=== PATIENT | female | born 1940 | race Caucasian/White ===

== ENCOUNTER 2019-03-24 15:45 | Observation (INO) | payer MEDICARE, OTHER ==
--- NOTE | 2019-03-24 16:07 | EDM.PDOC ---
ED HPI GENERAL MEDICAL PROBLEM - General Chief Complaint: General Stated Complaint: SPOKE TO NURSE Time Seen by Provider: 03/24/19 15:49 - History of Present Illness INITIAL COMMENTS - FREE TEXT/NARRATIVE: HISTORY AND PHYSICAL: History of present illness: Patient 79-year-old female with extensive past medical history including bone cancer and frequent blood transfusions related to her underlying disease and current chemotherapy she is followed exclusively at [facility] who presents today with a concern of vomiting generalized weakness and possible dehydration this is been a chronic intermittent problem over the last several weeks related to constipation per patient is been no reported fever chills chest pain or shortness of breath she was at a today for her sister prior to coming here Review of systems: As per history of present illness and below otherwise all systems reviewed and negative. Past medical history: As per history of present illness and as reviewed below otherwise noncontributory. Surgical history: As per history of present illness and as reviewed below otherwise noncontributory. Social history: No reported history of drug or alcohol abuse. Family history: As per history of present illness and as reviewed below otherwise noncontributory. Physical exam: HEENT: Atraumatic, normocephalic, pupils reactive,conjunctival pallor noted no scleral icterus, mucous membranes dry, throat clear, neck supple, nontender, trachea midline. Lungs: Clear to auscultation, breath sounds equal bilaterally, chest nontender. Heart: S1S2, regular, negative for clicks, rubs, or JVD. Abdomen: Soft, nondistended, nontender. Negative for masses or hepatosplenomegaly. Negative for costovertebral tenderness. Pelvis: Stable nontender. Genitourinary: Deferred. Rectal: Deferred. Extremities: Atraumatic, negative for cords or calf pain. Neurovascular unremarkable. Neuro: Awake, alert, oriented. Patient follows command moves all extremities is limited grossly nonfocal exam Diagnostics: CBC CMP and lipase PT/INR chest x-ray EKG CT abdomen and pelvis UA Therapeutics: Saline 1 L bolus Zofran 4 mg IV Impression: #1 generalized weakness #2 vomiting with dehydration #3 history of malignancy with anemia Definitive disposition and diagnosis as appropriate pending reevaluation and review of above. - Related Data Allergies Allergy/AdvReac Type Severity Reaction Status Date / Time atorvastatin [From Lipitor] Allergy Numbness Verified 03/24/19 16:02 Home Meds: Home Meds Albuterol [Ventolin HFA] 2 puff IN Q6H PRN 03/24/19 [History] Azithromycin [Zithromax] 250 mg PO DAILY 03/24/19 [History] DULoxetine [Cymbalta] 30 mg PO DAILY 03/24/19 [History] Ethambutol 800 mg PO DAILY 03/24/19 [History] Fluticasone/Salmeterol [Advair 250-50 Diskus] 1 puff IH BID 03/24/19 [History] Rifabutin 300 mg PO DAILY 03/24/19 [History] Rivaroxaban [Xarelto] 20 mg PO DAILY 03/24/19 [History] Triamcinolone Acetonide [Triamcinolone Acetonide 0.1% Crm] 1 applic TOP BID [History] Triamterene/Hydrochlorothiazid [Triamterene-HCTZ 37.5-25 MG] 1 each PO DAILY [History] hydrOXYzine pamoate [Hydroxyzine Pamoate] 25 mg PO BEDTIME PRN 03/24/19 [History ] traMADol [Ultram] 50 mg PO BEDTIME 03/24/19 [History] traZODone HCl [Trazodone HCl] 25 mg PO BEDTIME 03/24/19 [History] ED ROS GENERAL - Review of Systems Review Of Systems: ROS reveals no pertinent complaints other than HPI. ED EXAM, GENERAL - Physical Exam Exam: See Below (See dictation) Course - Vital Signs Last Recorded V/S: Last Vital Signs Temp 36.1 C 03/24/19 16:03 Pulse 68 03/24/19 16:03 Resp 16 03/24/19 16:03 BP 114/48 L 03/24/19 16:03 Pulse Ox 88 L 03/24/19 16:03 - Orders/Labs/Meds Orders: Active Orders 24 hr Category Date Time Status Abdomen Pelvis wo Cont [CT] Stat Exams 03/24/19 16:15 Ordered Chest 1V Frontal [CR] Stat Exams 03/24/19 16:15 Ordered UA RFX SID AND CULT IF INDIC [URIN] Stat Lab 03/24/19 16:15 Ordered Sodium Chloride 0.9% [Saline Flush] Med 03/24/19 16:17 Active 10 ml FLUSH ASDIRECTED PRN Sodium Chloride 0.9% [Saline Flush] Med 03/24/19 16:17 Active 2.5 ml FLUSH ASDIRECTED PRN Saline Lock Insert [OM.PC] Stat Oth 03/24/19 16:17 Ordered Medication Orders Sodium Chloride (Saline Flush) 10 ml FLUSH ASDIRECTED PRN PRN Reason: Keep Vein Open Last Admin: 03/24/19 16:35 Dose: 10 ml Sodium Chloride (Saline Flush) 2.5 ml FLUSH ASDIRECTED PRN PRN Reason: Keep Vein Open Last Admin: 03/24/19 16:35 Dose: 2.5 ml Labs: Laboratory Tests 03/24/19 03/24/19 03/24/19 Range/Units 16:38 16:38 16:38 WBC 3.23 L (4.0-11.0) K/uL RBC 2.34 L (4.30-5.90) M/uL Hgb 7.7 L (12.0-16.0) g/dL Hct 23.1 L (36.0-46.0) % MCV 98.7 H (80.0-98.0) fL MCH 32.9 H (27.0-32.0) pg MCHC 33.3 (31.0-37.0) g/dL RDW Std Deviation 74.3 H (28.0-62.0) fl RDW Coeff of Aliyah 22 H (11.0-15.0) % Plt Count 253 (150-400) K/uL MPV 12.00 (7.40-12.00) fL Neut % (Auto) 72.5 (48.0-80.0) % Lymph % (Auto) 7.7 L (16.0-40.0) % [place] % (Auto) 1.9 (0.0-15.0) % Eos % (Auto) 17.0 H (0.0-7.0) % Baso % (Auto) 0.9 (0.0-1.5) % Neut # (Auto) 2.3 (1.4-5.7) K/uL Lymph # (Auto) 0.3 L (0.6-2.4) K/uL [place] # (Auto) 0.1 (0.0-0.8) K/uL Eos # (Auto) 0.6 (0.0-0.7) K/uL Baso # (Auto) 0.0 (0.0-0.1) K/uL Nucleated RBC % 0.0 /100WBC Nucleated RBCs # 0 K/uL INR 1.18 Sodium 137 (136-145) mmol/L Potassium 3.3 L (3.5-5.1) mmol/L Chloride 101 (98-107) mmol/L Carbon Dioxide 27.1 (21.0-32.0) mmol/L BUN 19 H (7.0-18.0) mg/dL Creatinine 0.9 (0.6-1.0) mg/dL Est Cr Clr Drug Dosing 36.86 mL/min Estimated GFR (MDRD) > 60.0 ml/min Glucose 110 H (74-106) mg/dL Calcium 9.1 (8.5-10.1) mg/dL Total Bilirubin 1.2 H (0.2-1.0) mg/dL AST 27 (15-37) IU/L ALT 17 (14-63) IU/L Alkaline Phosphatase 84 (46-116) U/L Total Protein 6.0 L (6.4-8.2) g/dL Albumin 3.2 L (3.4-5.0) g/dL Globulin 2.8 (2.6-4.0) g/dL Albumin/Globulin Ratio 1.1 (0.9-1.6) Lipase 66 L (73-393) U/L Blood Type Antibody Screen 03/24/19 Range/Units 16:38 WBC (4.0-11.0) K/uL RBC (4.30-5.90) M/uL Hgb (12.0-16.0) g/dL Hct (36.0-46.0) % MCV (80.0-98.0) fL MCH (27.0-32.0) pg MCHC (31.0-37.0) g/dL RDW Std Deviation (28.0-62.0) fl RDW Coeff of Aliyah (11.0-15.0) % Plt Count (150-400) K/uL MPV (7.40-12.00) fL Neut % (Auto) (48.0-80.0) % Lymph % (Auto) (16.0-40.0) % [place] % (Auto) (0.0-15.0) % Eos % (Auto) (0.0-7.0) % Baso % (Auto) (0.0-1.5) % Neut # (Auto) (1.4-5.7) K/uL Lymph # (Auto) (0.6-2.4) K/uL [place] # (Auto) (0.0-0.8) K/uL Eos # (Auto) (0.0-0.7) K/uL Baso # (Auto) (0.0-0.1) K/uL Nucleated RBC % /100WBC Nucleated RBCs # K/uL INR Sodium (136-145) mmol/L Potassium (3.5-5.1) mmol/L Chloride (98-107) mmol/L Carbon Dioxide (21.0-32.0) mmol/L BUN (7.0-18.0) mg/dL Creatinine (0.6-1.0) mg/dL Est Cr Clr Drug Dosing mL/min Estimated GFR (MDRD) ml/min Glucose (74-106) mg/dL Calcium (8.5-10.1) mg/dL Total Bilirubin (0.2-1.0) mg/dL AST (15-37) IU/L ALT (14-63) IU/L Alkaline Phosphatase (46-116) U/L Total Protein (6.4-8.2) g/dL Albumin (3.4-5.0) g/dL Globulin (2.6-4.0) g/dL Albumin/Globulin Ratio (0.9-1.6) Lipase (73-393) U/L Blood Type O POSITIVE Antibody Screen NEGATIVE Meds: Medications Generic Name Dose Route Start Last Admin Trade Name Freq PRN Reason Stop Dose Admin Sodium Chloride 10 ml 03/24/19 16:17 03/24/19 16:35 Saline Flush FLUSH 10 ml ASDIRECTED PRN Administration Keep Vein Open Sodium Chloride 2.5 ml 03/24/19 16:17 03/24/19 16:35 Saline Flush FLUSH 2.5 ml ASDIRECTED PRN Administration Keep Vein Open Discontinued Medications Generic Name Dose Route Start Last Admin Trade Name Freq PRN Reason Stop Dose Admin Sodium Chloride 1,000 mls @ 999 mls/hr 03/24/19 16:16 03/24/19 16:34 Normal Saline IV 03/24/19 17:16 999 mls/hr .BOLUS ONE Administration Ondansetron HCl 4 mg 03/24/19 16:17 03/24/19 16:35 Zofran IVPUSH 03/24/19 16:18 4 mg ONETIME ONE Administration Departure - Departure Time of Disposition: 17:36 Disposition: Refer to Observation Condition: Fair Clinical Impression: Generalized weakness, Anemia, History of hematologic malignancy, Dehydration - Discharge Information Forms: ED Department Discharge - My Orders Last 24 Hours: My Active Orders 03/24/19 16:15 Abdomen Pelvis wo Cont [CT] Stat Chest 1V Frontal [CR] Stat UA RFX SID AND CULT IF INDIC [URIN] Stat 03/24/19 16:17 Sodium Chloride 0.9% [Saline Flush] 10 ml FLUSH ASDIRECTED PRN Sodium Chloride 0.9% [Saline Flush] 2.5 ml FLUSH ASDIRECTED PRN Saline Lock Insert [OM.PC] Stat - Assessment/Plan Last 24 Hours: My Active Orders 03/24/19 16:15 Abdomen Pelvis wo Cont [CT] Stat Chest 1V Frontal [CR] Stat UA RFX SID AND CULT IF INDIC [URIN] Stat 03/24/19 16:17 Sodium Chloride 0.9% [Saline Flush] 10 ml FLUSH ASDIRECTED PRN Sodium Chloride 0.9% [Saline Flush] 2.5 ml FLUSH ASDIRECTED PRN Saline Lock Insert [OM.PC] Stat
[2019-03-24] MEDS ORDERED: Sodium Chloride 0.9% 1,000 ML IV ONE ×3 (16:16→18:46)
[2019-03-24] MEDS ORDERED: Ondansetron 4 MG/2 ML SDV IVPUSH ONE (16:17)
[2019-03-24] MEDS ORDERED: Sodium Chloride 0.9% 10 ML Syringe FLUSH PRN (16:17)
[2019-03-24] MEDS ORDERED: Sodium Chloride 0.9% 2.5 ML Syringe FLUSH PRN (16:17)
[2019-03-24 17:13] LABS: CHLORIDE,CL 101 mmol/L (98-107); SODIUM,NA 137 mmol/L (136-145)
[2019-03-24] MEDS ORDERED: Ondansetron 4 MG Tab.DIS PO PRN (17:53)
[2019-03-24] MEDS ORDERED: Ondansetron 4 MG/2 ML SDV IVPUSH PRN (17:53)
[2019-03-24] MEDS ORDERED: Acetaminophen 325 MG Tab PO PRN (17:53)
[2019-03-24] MEDS ORDERED: Bisacodyl 5 MG Tab PO ONE (17:55)
[2019-03-24] MEDS ORDERED: Albuterol 8 GM Inhaler INH PRN (17:56)
[2019-03-24] MEDS ORDERED: hydrOXYzine Pamoate 25 MG Cap PO PRN (17:56)
[2019-03-24] MEDS ORDERED: Potassium Chloride 20 MEQ Tab.ER PO ONE (18:00)
--- NOTE | 2019-03-24 18:58 | PCM.HP.2 ---
<Salvador Sawyer M - Last Filed: 03/24/19 19:05> H&P History of Present Illness - General Date of Service: 03/24/19 Admit Problem/Dx: Admission Diagnosis/Problem Admission Diagnosis/Problem Weakness - History of Present Illness Initial Comments - Free Text/Narative: 79-year-old female who presents to [facility] ER with complaints of weakness, dehydration and constipation. Patient reports that she has star dealing with constipation for the past several weeks now. Her last bowel movement was this morning but it was very small. She has a PMH of myelodysplastic syndrome and is currently on chemotherapy. She followed up with the [facility] as well as Dr. Ortega at [facility] in [place]. She reports that she has chronic anemia and gets regular blood transfusions in [place] approximately every other week. Patient uses home oxygen at night. Patient reports that she felt nauseated and started vomiting today and along with her constipation prompted her to come to the ER for further evaluation. In the ER, patient was found to have a hemoglobin level of 7.7. Patient admitted for further evaluation and treatment. Patient reports feeling cold, weak, nauseated and very constipated. She denies any fevers, sore throat, cough, shortness of breath, chest pain, blood in urine or blood in stool. Abdominal Pain Score (Numeric/FACES): 4 - Related Data Allergies/Adverse Reactions: Allergies Allergy/AdvReac Type Severity Reaction Status Date / Time atorvastatin [From Lipitor] Allergy Numbness Verified 03/24/19 22:59 Home Medications: Home Meds Albuterol [Ventolin HFA] 2 puff IN Q6H PRN 03/24/19 [History] Azithromycin [Zithromax] 250 mg PO DAILY 03/24/19 [History] DULoxetine [Cymbalta] 30 mg PO DAILY 03/24/19 [History] Ethambutol 800 mg PO DAILY 03/24/19 [History] Fluticasone/Salmeterol [Advair 250-50 Diskus] 1 puff IH BID 03/24/19 [History] Rifabutin 300 mg PO DAILY 03/24/19 [History] Rivaroxaban [Xarelto] 20 mg PO DAILY 03/24/19 [History] Triamcinolone Acetonide [Triamcinolone Acetonide 0.1% Crm] 1 applic TOP BID [History] Triamterene/Hydrochlorothiazid [Triamterene-HCTZ 37.5-25 MG] 1 each PO DAILY [History] hydrOXYzine pamoate [Hydroxyzine Pamoate] 25 mg PO BEDTIME PRN 03/24/19 [History ] traMADol [Ultram] 50 mg PO BEDTIME 03/24/19 [History] traZODone HCl [Trazodone HCl] 25 mg PO BEDTIME 03/24/19 [History] Past Medical History Cardiovascular History: Reports: Blood Clots/VTE/DVT, Pulmonary Hypertension Respiratory History: Reports: PE Gastrointestinal History: Reports: Other (See Below) Other Gastrointestinal History: Menetres disease Genitourinary History: Reports: None [employer] History: Reports: Musculoskeletal History: Reports: Fracture, Other (See Below) Other Musculoskeletal History: Skull fracture Oncologic (Cancer) History: Reports: Bone - Infectious Disease History Infectious Disease History: Reports: Chicken Pox, Measles, Mumps - Past Surgical History Respiratory Surgical History: Reports: Lung Biopsies GI Surgical History: Reports: Other (See Below) Female Surgical History: Reports: Hysterectomy Other Oncologic Surgeries/Procedures: MDS Social & Family History - Family History Family Medical History: Noncontributory - Tobacco Use Smoking Status *Q: Never Smoker Second Hand Smoke Exposure: No - Caffeine Use Caffeine Use: Reports: Coffee - Recreational Drug Use Recreational Drug Use: No H&P Review of Systems - Review of Systems: Review Of Systems: ROS reveals no pertinent complaints other than HPI. Exam - Exam Exam: See Below - Vital Signs Vital Signs: Last Vital Signs Temp 96.9 F 03/24/19 16:03 Pulse 68 03/24/19 16:03 Resp 16 03/24/19 16:03 BP 114/48 L 03/24/19 16:03 Pulse Ox 88 L 03/24/19 16:03 Weight: 47.627 kg - Exam General: Alert, Oriented, Cooperative, Mild Distress, Other (pale appearing) HEENT: Conjunctiva Clear, EOMI, Hearing Intact, Pupils Equal Neck: Supple, Trachea Midline Lungs: Clear to Auscultation, Normal Respiratory Effort Cardiovascular: Regular Rate, Regular Rhythm GI/Abdominal Exam: Normal Bowel Sounds, Soft, Non-Tender, No Distention Extremities: Normal Inspection, No Pedal Edema Peripheral Pulses: 1+: Posterior Tibial (L), Posterior Tibial (R) Skin: Warm, Dry, Intact Neurological: Cranial Nerves Intact, Normal Speech, Normal Tone, Sensation Intact Neuro Extensive - Mental Status: Alert, Oriented x3 Psychiatric: Alert, Normal Affect, Normal Mood - Patient Data Lab Results Last 24 hrs: Laboratory Results - last 24 hr 03/24/19 03/24/19 03/24/19 Range/Units 16:38 16:38 16:38 WBC 3.23 L (4.0-11.0) K/uL RBC 2.34 L (4.30-5.90) M/uL Hgb 7.7 L (12.0-16.0) g/dL Hct 23.1 L (36.0-46.0) % MCV 98.7 H (80.0-98.0) fL MCH 32.9 H (27.0-32.0) pg MCHC 33.3 (31.0-37.0) g/dL RDW Std Deviation 74.3 H (28.0-62.0) fl RDW Coeff of Aliyah 22 H (11.0-15.0) % Plt Count 253 (150-400) K/uL MPV 12.00 (7.40-12.00) fL Neut % (Auto) 72.5 (48.0-80.0) % Lymph % (Auto) 7.7 L (16.0-40.0) % Mingo % (Auto) 1.9 (0.0-15.0) % Eos % (Auto) 17.0 H (0.0-7.0) % Baso % (Auto) 0.9 (0.0-1.5) % Neut # (Auto) 2.3 (1.4-5.7) K/uL Lymph # (Auto) 0.3 L (0.6-2.4) K/uL Mingo # (Auto) 0.1 (0.0-0.8) K/uL Eos # (Auto) 0.6 (0.0-0.7) K/uL Baso # (Auto) 0.0 (0.0-0.1) K/uL Nucleated RBC % 0.0 /100WBC Nucleated RBCs # 0 K/uL INR 1.18 Sodium 137 (136-145) mmol/L Potassium 3.3 L (3.5-5.1) mmol/L Chloride 101 (98-107) mmol/L Carbon Dioxide 27.1 (21.0-32.0) mmol/L BUN 19 H (7.0-18.0) mg/dL Creatinine 0.9 (0.6-1.0) mg/dL Est Cr Clr Drug Dosing 36.86 mL/min Estimated GFR (MDRD) > 60.0 ml/min Glucose 110 H (74-106) mg/dL Calcium 9.1 (8.5-10.1) mg/dL Total Bilirubin 1.2 H (0.2-1.0) mg/dL AST 27 (15-37) IU/L ALT 17 (14-63) IU/L Alkaline Phosphatase 84 (46-116) U/L Total Protein 6.0 L (6.4-8.2) g/dL Albumin 3.2 L (3.4-5.0) g/dL Globulin 2.8 (2.6-4.0) g/dL Albumin/Globulin Ratio 1.1 (0.9-1.6) Lipase 66 L (73-393) U/L Blood Type Antibody Screen Crossmatch 03/24/19 Range/Units 16:38 WBC (4.0-11.0) K/uL RBC (4.30-5.90) M/uL Hgb (12.0-16.0) g/dL Hct (36.0-46.0) % MCV (80.0-98.0) fL MCH (27.0-32.0) pg MCHC (31.0-37.0) g/dL RDW Std Deviation (28.0-62.0) fl RDW Coeff of Aliyah (11.0-15.0) % Plt Count (150-400) K/uL MPV (7.40-12.00) fL Neut % (Auto) (48.0-80.0) % Lymph % (Auto) (16.0-40.0) % [place]ingo % (Auto) (0.0-15.0) % Eos % (Auto) (0.0-7.0) % Baso % (Auto) (0.0-1.5) % Neut # (Auto) (1.4-5.7) K/uL Lymph # (Auto) (0.6-2.4) K/uL [place]ingo # (Auto) (0.0-0.8) K/uL Eos # (Auto) (0.0-0.7) K/uL Baso # (Auto) (0.0-0.1) K/uL Nucleated RBC % /100WBC Nucleated RBCs # K/uL INR Sodium (136-145) mmol/L Potassium (3.5-5.1) mmol/L Chloride (98-107) mmol/L Carbon Dioxide (21.0-32.0) mmol/L BUN (7.0-18.0) mg/dL Creatinine (0.6-1.0) mg/dL Est Cr Clr Drug Dosing mL/min Estimated GFR (MDRD) ml/min Glucose (74-106) mg/dL Calcium (8.5-10.1) mg/dL Total Bilirubin (0.2-1.0) mg/dL AST (15-37) IU/L ALT (14-63) IU/L Alkaline Phosphatase (46-116) U/L Total Protein (6.4-8.2) g/dL Albumin (3.4-5.0) g/dL Globulin (2.6-4.0) g/dL Albumin/Globulin Ratio (0.9-1.6) Lipase (73-393) U/L Blood Type O POSITIVE Antibody Screen NEGATIVE Crossmatch See Detail Result Diagrams: 03/24/19 16:38 03/24/19 16:38 Problem List Initiated/Reviewed/Updated: Yes Orders Last 24hrs: Active Orders 24 hr Category Date Time Status Patient Status [ADT] Stat ADT 03/24/19 17:38 Active Antiembolic Devices [RC] PER UNIT ROUTINE Care 03/24/19 17:54 Active Communication Order [RC] ROUTINE Care 03/24/19 18:15 Active Oxygen Therapy [RC] PRN Care 03/24/19 17:53 Active Up ad Yoly [RC] ASDIRECTED Care 03/24/19 17:53 Active VTE/DVT Education [RC] PER UNIT ROUTINE Care 03/24/19 17:53 Active Verify Patient Consent Obtain [RC] ASDIRECTED Care 03/24/19 18:09 Active Vital Signs [RC] Q4H Care 03/24/19 17:53 Active Regular Diet [DIET] Diet 03/24/19 Dinner Active Abdomen Pelvis wo Cont [CT] Stat Exams 03/24/19 16:15 Taken Chest 1V Frontal [CR] Stat Exams 03/24/19 16:15 Taken CBC WITH AUTO DIFF [HEME] AM Lab 03/25/19 05:11 Ordered CBC WITH AUTO DIFF [HEME] AM Lab 03/26/19 05:11 Ordered COMPREHENSIVE METABOLIC PN,CMP [CHEM] AM Lab 03/25/19 05:11 Ordered COMPREHENSIVE METABOLIC PN,CMP [CHEM] AM Lab 03/26/19 05:11 Ordered RED BLOOD CELLS LP [BBK] Routine Lab 03/24/19 16:38 Results TYPE AND SCREEN [BBK] Stat Lab 03/24/19 16:38 Results UA RFX SID AND CULT IF INDIC [URIN] Stat Lab 03/24/19 16:15 Ordered Acetaminophen [Tylenol] Med 03/24/19 17:53 Active 650 mg PO Q4H PRN Albuterol [Ventolin HFA] Med 03/24/19 17:56 Active 0 gm INH Q6H PRN DULoxetine [Cymbalta] Med 03/25/19 09:00 Active 30 mg PO DAILY Fluticasone/Salmeterol [Advair Diskus 250-50] Med 03/24/19 21:00 Active 1 puff INH BID Ondansetron [Zofran ODT] Med 03/24/19 17:53 Active 4 mg PO Q4H PRN Ondansetron [Zofran] Med 03/24/19 17:53 Active 4 mg IVPUSH Q4H PRN Polyethylene Glycol 3350 [MiraLAX] Med 03/24/19 18:00 Active 17 gm PO DAILY Rivaroxaban [Xarelto] Med 03/25/19 09:00 Active 20 mg PO DAILY Sodium Chloride 0.9% [Normal Saline] 1,000 ml Med 03/24/19 18:46 Active IV CONTINUOUS Sodium Chloride 0.9% [Saline Flush] Med 03/24/19 16:17 Active 10 ml FLUSH ASDIRECTED PRN Sodium Chloride 0.9% [Saline Flush] Med 03/24/19 16:17 Active 2.5 ml FLUSH ASDIRECTED PRN Triamterene/Hydrochlorothiazid Med 03/25/19 09:00 Active 1 each PO DAILY hydrOXYzine pamoate [Vistaril] Med 03/24/19 17:56 Active 25 mg PO BEDTIME PRN traMADol [Ultram] Med 03/24/19 21:00 Active 50 mg PO BEDTIME traZODone Med 03/24/19 21:00 Active 25 mg PO BEDTIME Saline Lock Insert [OM.PC] Stat Oth 03/24/19 16:17 Ordered Sequential Compression Device [OM.PC] Per Unit Routine Oth 03/24/19 17:54 Ordered Transfuse Red Blood Cells [COMM] Routine Oth 03/24/19 18:08 Ordered Resuscitation Status Routine Resus Stat 03/24/19 17:53 Ordered Medication Orders Acetaminophen (Tylenol) 650 mg PO Q4H PRN PRN Reason: Pain (Mild 1-3)/fever Albuterol (Ventolin Hfa) 0 gm INH Q6H PRN PRN Reason: Shortness of Breath Duloxetine HCl (Cymbalta) 30 mg PO DAILY [facility] Hydroxyzine Pamoate (Vistaril) 25 mg PO BEDTIME PRN PRN Reason: Itching Sodium Chloride (Normal Saline) 1,000 mls @ 75 mls/hr IV CONTINUOUS ONE Stop: 03/25/19 07:20 Non-Formulary Medication (Rivaroxaban [Xarelto]) 20 mg PO DAILY [facility] Non-Formulary Medication (Triamterene/Hydrochlorothiazid) 1 each PO DAILY [facility] Ondansetron HCl (Zofran Odt) 4 mg PO Q4H PRN PRN Reason: nausea, able to take PO Ondansetron HCl (Zofran) 4 mg IVPUSH Q4H PRN PRN Reason: Nausea Polyethylene Glycol (Miralax) 17 gm PO DAILY [facility] Fluticasone/Salmeterol (Advair Diskus 250-50) 1 puff INH BID KARON Sodium Chloride (Saline Flush) 10 ml FLUSH ASDIRECTED PRN PRN Reason: Keep Vein Open Last Admin: 03/24/19 16:35 Dose: 10 ml Sodium Chloride (Saline Flush) 2.5 ml FLUSH ASDIRECTED PRN PRN Reason: Keep Vein Open Last Admin: 03/24/19 16:35 Dose: 2.5 ml Tramadol HCl (Ultram) 50 mg PO BEDTIME KARON Trazodone HCl (Trazodone) 25 mg PO BEDTIME KARON Assessment/Plan Comment:: Assessment: 1. Acute on chronic anemia. 2. Constipation. 3. Dehydration. 4. Ambulatory dysfunction. 5. History of myelodysplastic syndrome on chemotherapy. 6. Past medical history of pulmonary hypertension and multiple PE. Plan: 1. For acute anemia, ordered 2 units of leukocyte depleted blood, type and screen. Patient reports a history of chronic anemia requiring blood transfusions in [place] every other week. Will check post-transfusion hemoglobin. 2. For constipation, patient started miralax and dulcolax. CT pending. 3. For dehydration, started on IV maintenance fluids of 75 cc/hr. 4. For ambulatory dysfunction, will order PT/OT. 5. For past medical history, will continue with home medications. <Dillon Francisco - Last Filed: 03/25/19 07:03> H&P History of Present Illness - General Admit Problem/Dx: Admission Diagnosis/Problem Admission Diagnosis/Problem Weakness I have examined the patient independently of medical videographer, Dr. Silverio MD. I have discussed the case with him. I have reviewed and agree with the examination and plan as outlined by him. Please see orders. Exam - Vital Signs Vital Signs: Last Vital Signs Temp 36.2 C 03/25/19 04:00 Pulse 106 H 03/25/19 04:00 Resp 16 03/25/19 04:00 BP 92/51 L 03/25/19 04:00 Pulse Ox 97 03/25/19 04:00 - Patient Data Lab Results Last 24 hrs: Laboratory Results - last 24 hr 03/24/19 03/24/19 03/24/19 Range/Units 16:38 16:38 16:38 WBC 3.23 L (4.0-11.0) K/uL RBC 2.34 L (4.30-5.90) M/uL Hgb 7.7 L (12.0-16.0) g/dL Hct 23.1 L (36.0-46.0) % MCV 98.7 H (80.0-98.0) fL MCH 32.9 H (27.0-32.0) pg MCHC 33.3 (31.0-37.0) g/dL RDW Std Deviation 74.3 H (28.0-62.0) fl RDW Coeff of Aliyah 22 H (11.0-15.0) % Plt Count 253 (150-400) K/uL MPV 12.00 (7.40-12.00) fL Neut % (Auto) 72.5 (48.0-80.0) % Lymph % (Auto) 7.7 L (16.0-40.0) % Mingo % (Auto) 1.9 (0.0-15.0) % Eos % (Auto) 17.0 H (0.0-7.0) % Baso % (Auto) 0.9 (0.0-1.5) % Neut # (Auto) 2.3 (1.4-5.7) K/uL Lymph # (Auto) 0.3 L (0.6-2.4) K/uL Mingo # (Auto) 0.1 (0.0-0.8) K/uL Eos # (Auto) 0.6 (0.0-0.7) K/uL Baso # (Auto) 0.0 (0.0-0.1) K/uL Nucleated RBC % 0.0 /100WBC Nucleated RBCs # 0 K/uL INR 1.18 Sodium 137 (136-145) mmol/L Potassium 3.3 L (3.5-5.1) mmol/L Chloride 101 (98-107) mmol/L Carbon Dioxide 27.1 (21.0-32.0) mmol/L BUN 19 H (7.0-18.0) mg/dL Creatinine 0.9 (0.6-1.0) mg/dL Est Cr Clr Drug Dosing 36.86 mL/min Estimated GFR (MDRD) > 60.0 ml/min Glucose 110 H (74-106) mg/dL Calcium 9.1 (8.5-10.1) mg/dL Total Bilirubin 1.2 H (0.2-1.0) mg/dL AST 27 (15-37) IU/L ALT 17 (14-63) IU/L Alkaline Phosphatase 84 (46-116) U/L Total Protein 6.0 L (6.4-8.2) g/dL Albumin 3.2 L (3.4-5.0) g/dL Globulin 2.8 (2.6-4.0) g/dL Albumin/Globulin Ratio 1.1 (0.9-1.6) Lipase 66 L (73-393) U/L Urine Color Urine Appearance Urine pH (5.0-8.0) Ur Specific [place] (1.001-1.035) Urine Protein (NEGATIVE) mg/dL Urine Glucose (UA) (NEGATIVE) mg/dL Urine Ketones (NEGATIVE) mg/dL Urine Occult Blood (NEGATIVE) Urine Nitrite (NEGATIVE) Urine Bilirubin (NEGATIVE) Urine Ictotest Urine Urobilinogen (<2.0) EU/dL Ur Leukocyte Esterase (NEGATIVE) Urine RBC (0-2/HPF) Urine WBC (0-5/HPF) Ur Epithelial Cells (NONE-FEW) Urine Bacteria (NEGATIVE) Urine Mucus (NONE-MOD) Blood Type Antibody Screen Crossmatch 03/24/19 03/25/19 03/25/19 Range/Units 16:38 05:15 06:25 WBC 3.31 L (4.0-11.0) K/uL RBC 2.05 L (4.30-5.90) M/uL Hgb 6.7 L (12.0-16.0) g/dL Hct 20.4 L (36.0-46.0) % MCV 99.5 H (80.0-98.0) fL MCH 32.7 H (27.0-32.0) pg MCHC 32.8 (31.0-37.0) g/dL RDW Std Deviation 73.7 H (28.0-62.0) fl RDW Coeff of Aliyah 21 H (11.0-15.0) % Plt Count 224 (150-400) K/uL MPV 12.00 (7.40-12.00) fL Neut % (Auto) 69.5 (48.0-80.0) % Lymph % (Auto) 13.3 L (16.0-40.0) % Mingo % (Auto) 4.8 (0.0-15.0) % Eos % (Auto) 11.5 H (0.0-7.0) % Baso % (Auto) 0.9 (0.0-1.5) % Neut # (Auto) 2.3 (1.4-5.7) K/uL Lymph # (Auto) 0.4 L (0.6-2.4) K/uL Mingo # (Auto) 0.2 (0.0-0.8) K/uL Eos # (Auto) 0.4 (0.0-0.7) K/uL Baso # (Auto) 0.0 (0.0-0.1) K/uL Nucleated RBC % 0.0 /100WBC Nucleated RBCs # 0 K/uL INR Sodium (136-145) mmol/L Potassium (3.5-5.1) mmol/L Chloride (98-107) mmol/L Carbon Dioxide (21.0-32.0) mmol/L BUN (7.0-18.0) mg/dL Creatinine (0.6-1.0) mg/dL Est Cr Clr Drug Dosing mL/min Estimated GFR (MDRD) ml/min Glucose (74-106) mg/dL Calcium (8.5-10.1) mg/dL Total Bilirubin (0.2-1.0) mg/dL AST (15-37) IU/L ALT (14-63) IU/L Alkaline Phosphatase (46-116) U/L Total Protein (6.4-8.2) g/dL Albumin (3.4-5.0) g/dL Globulin (2.6-4.0) g/dL Albumin/Globulin Ratio (0.9-1.6) Lipase (73-393) U/L Urine Color BROWN Urine Appearance CLEAR Urine pH 5.5 (5.0-8.0) Ur Specific [place] 1.020 (1.001-1.035) Urine Protein TRACE H (NEGATIVE) mg/dL Urine Glucose (UA) NEGATIVE (NEGATIVE) mg/dL Urine Ketones NEGATIVE (NEGATIVE) mg/dL Urine Occult Blood NEGATIVE (NEGATIVE) Urine Nitrite POSITIVE H (NEGATIVE) Urine Bilirubin SMALL H (NEGATIVE) Urine Ictotest NEGATIVE Urine Urobilinogen 2.0 H (<2.0) EU/dL Ur Leukocyte Esterase NEGATIVE (NEGATIVE) Urine RBC NONE SEEN (0-2/HPF) Urine WBC 0-1 (0-5/HPF) Ur Epithelial Cells RARE (NONE-FEW) Urine Bacteria FEW (NEGATIVE) Urine Mucus LIGHT (NONE-MOD) Blood Type O POSITIVE Antibody Screen NEGATIVE Crossmatch See Detail Result Diagrams: 03/25/19 06:25 03/24/19 16:38 Orders Last 24hrs: Active Orders 24 hr Category Date Time Status Patient Status [ADT] Stat ADT 03/24/19 17:38 Active Antiembolic Devices [RC] PER UNIT ROUTINE Care 03/24/19 17:54 Active Communication Order [RC] ROUTINE Care 03/24/19 18:15 Active Oxygen Therapy [RC] PRN Care 03/24/19 17:53 Active Up ad Yoly [RC] ASDIRECTED Care 03/24/19 17:53 Active VTE/DVT Education [RC] PER UNIT ROUTINE Care 03/24/19 17:53 Active Verify Patient Consent Obtain [RC] ASDIRECTED Care 03/24/19 18:09 Active Vital Signs [RC] Q4H Care 03/24/19 17:53 Active Regular Diet [DIET] Diet 03/24/19 Dinner Active CBC WITH AUTO DIFF [HEME] AM Lab 03/26/19 05:11 Ordered COMPREHENSIVE METABOLIC PN,CMP [CHEM] AM Lab 03/25/19 06:25 Received COMPREHENSIVE METABOLIC PN,CMP [CHEM] AM Lab 03/26/19 05:11 Ordered CULTURE URINE [RM] Stat Lab 03/25/19 05:15 Received RED BLOOD CELLS LP [BBK] Routine Lab 03/24/19 16:38 Results TYPE AND SCREEN [BBK] Stat Lab 03/24/19 16:38 Results Acetaminophen [Tylenol] Med 03/24/19 17:53 Active 650 mg PO Q4H PRN Albuterol [Ventolin HFA] Med 03/24/19 17:56 Active 0 gm INH Q6H PRN DULoxetine [Cymbalta] Med 03/25/19 09:00 Active 30 mg PO DAILY Fluticasone/Salmeterol [Advair Diskus 250-50] Med 03/24/19 21:00 Active 1 puff INH BID Magnesium Citrate [Citrate of Magnesia] Med 03/24/19 19:04 Active 296 ml PO ONETIME PRN Ondansetron [Zofran ODT] Med 03/24/19 17:53 Active 4 mg PO Q4H PRN Ondansetron [Zofran] Med 03/24/19 17:53 Active 4 mg IVPUSH Q4H PRN Polyethylene Glycol 3350 [MiraLAX] Med 03/24/19 18:00 Active 17 gm PO DAILY Rivaroxaban [Xarelto] Med 03/25/19 09:00 Active 20 mg PO DAILY Sodium Chloride 0.9% [Normal Saline] 1,000 ml Med 03/24/19 18:46 Active IV CONTINUOUS Sodium Chloride 0.9% [Saline Flush] Med 03/24/19 16:17 Active 10 ml FLUSH ASDIRECTED PRN Sodium Chloride 0.9% [Saline Flush] Med 03/24/19 16:17 Active 2.5 ml FLUSH ASDIRECTED PRN Triamterene/Hydrochlorothiazid Med 03/25/19 09:00 Active 1 each PO DAILY hydrOXYzine pamoate [Vistaril] Med 03/24/19 17:56 Active 25 mg PO BEDTIME PRN traMADol [Ultram] Med 03/24/19 21:00 Active 50 mg PO BEDTIME traZODone Med 03/24/19 21:00 Active 25 mg PO BEDTIME Saline Lock Insert [OM.PC] Stat Ot 03/24/19 16:17 Ordered Sequential Compression Device [OM.PC] Per Unit Routine Oth 03/24/19 17:54 Ordered Transfuse Red Blood Cells [COMM] Routine Oth 03/24/19 18:08 Ordered Resuscitation Status Routine Resus Stat 03/24/19 17:53 Ordered Medication Orders Acetaminophen (Tylenol) 650 mg PO Q4H PRN PRN Reason: Pain (Mild 1-3)/fever Albuterol (Ventolin Hfa) 0 gm INH Q6H PRN PRN Reason: Shortness of Breath Duloxetine HCl (Cymbalta) 30 mg PO DAILY KARON Hydroxyzine Pamoate (Vistaril) 25 mg PO BEDTIME PRN PRN Reason: Itching Sodium Chloride (Normal Saline) 1,000 mls @ 75 mls/hr IV CONTINUOUS ONE Stop: 03/25/19 07:20 Last Admin: 03/24/19 20:02 Dose: 75 mls/hr Magnesium Citrate (Citrate Of Magnesia) 296 ml PO ONETIME PRN PRN Reason: Constipation Non-Formulary Medication (Rivaroxaban [Xarelto]) 20 mg PO DAILY KARON Non-Formulary Medication (Triamterene/Hydrochlorothiazid) 1 each PO DAILY [facility]ON Ondansetron HCl (Zofran Odt) 4 mg PO Q4H PRN PRN Reason: nausea, able to take PO Ondansetron HCl (Zofran) 4 mg IVPUSH Q4H PRN PRN Reason: Nausea Polyethylene Glycol (Miralax) 17 gm PO DAILY [facility] Last Admin: 03/24/19 20:15 Dose: Not Given Fluticasone/Salmeterol (Advair Diskus 250-50) 1 puff INH BID [facility] Last Admin: 03/24/19 20:16 Dose: 1 puff Sodium Chloride (Saline Flush) 10 ml FLUSH ASDIRECTED PRN PRN Reason: Keep Vein Open Last Admin: 03/24/19 16:35 Dose: 10 ml Sodium Chloride (Saline Flush) 2.5 ml FLUSH ASDIRECTED PRN PRN Reason: Keep Vein Open Last Admin: 03/24/19 16:35 Dose: 2.5 ml Tramadol HCl (Ultram) 50 mg PO BEDTIME [facility] Last Admin: 03/24/19 20:15 Dose: 50 mg Trazodone HCl (Trazodone) 25 mg PO BEDTIME [facility] Last Admin: 03/24/19 20:16 Dose: 25 mg
[2019-03-24] MEDS ORDERED: Magnesium Citrate Solution 296 ML Bottle PO PRN (19:04)
--- NOTE | 2019-03-24 19:17 | CT ---
INDICATION: Abdominal pain. 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 COMPARISON: None available TECHNIQUE: CT examination of the abdomen and pelvis was performed without contrast enhancement using 3 mm thick axial sections from the lung bases through the pubic symphysis. Oral contrast was not administered. Please note that all CT scans at this facility use dose modulation, iterative reconstruction, and/or weight-based dosing when appropriate to reduce radiation dose to as low as reasonably achievable. FINDINGS: In the abdomen, the unenhanced liver is prominently enlarged by multiple large heterogeneous soft tissue masses consistent with metastatic disease. The liver measures 23.4 centimeters in length, extending below the superior iliac crest. The right kidney is prominently displaced medially by the enlarged liver. The largest mass is in the superior right lobe measuring 12.0 x 10.3 x 11.2 centimeters, involving both segments 7 and 8. Another dominant mass is seen in the medial lateral segments of the left lobe extending into the medial segment, measuring 9.4 x 7.1 by 6.9 centimeters. There appears to be moderate intrahepatic biliary ductal dilatation. There is prominent dilatation of the common bile duct, measuring 22 millimeters in diameter, extending into the pancreatic head. No distinct pancreatic head mass is seen, but the findings are strongly suspicious for pancreatic malignancy resulting in metastatic disease and biliary obstruction. The pancreatic body and tail are atrophic and otherwise normal in appearance The spleen and adrenal are normal in appearance. I cannot definitely identify the her right adrenal gland. The right kidney is prominently displaced medially by the enlarged liver. The unenhanced kidneys are otherwise normal in appearance. The gallbladder is prominently distended but is otherwise normal in appearance. The abdominal aorta is normal in caliber with no sign of dilatation. There is no sign of retroperitoneal mass or adenopathy. The stomach, loops of small bowel, and colon in the abdomen are normal in appearance. In the pelvis, the appendix is normal in appearance with no sign of inflammatory process. The loops of small bowel in the pelvis are normal in appearance. There is a large amount of fecal material in the rectum and sigmoid colon consistent with constipation. There is a normal amount of fecal material more proximally in the colon. The uterus is absent and the adnexal regions are normal in appearance. The urinary bladder is normal in appearance. There is no sign of pelvic or inguinal mass or adenopathy. There is mild linear scarring and scattered throughout the right lung base. There is moderate linear density in the posterior left lung base which could be either atelectasis or scarring. There is no definite lytic or blastic metastatic disease to the bone. There is mild scoliosis of the lumbar spine convex towards the right. There is minimal posterior subluxation of L1 on L2 with prominent L1-2 disc degenerative disease. The rest of the vertebral bodies are in anatomic alignment. There is prominent disc degenerative disease at L4-5 and L5-S1. There is moderate disc degenerative disease at L2-3. The findings were discussed with Dr. Gonzalez at 1910 hours on 03/24/2019. IMPRESSION: CT of the abdomen shows multiple large soft tissue masses in the liver consistent with metastatic disease. Moderate intrahepatic biliary ductal dilatation and massive dilatation of the common bile duct extending into the pancreatic head without a definite identifiable pancreatic head mass. 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 Moderate enlargement of the liver results in prominent medial displacement of the right kidney. Prominent enlargement of the gallbladder. CT of the pelvis shows a large amount of fecal material in the rectum and sigmoid colon consistent with constipation. Status post hysterectomy. Please note that all CT scans at this facility use dose modulation, iterative reconstruction, and/or weight-based dosing when appropriate to reduce radiation dose to as low as reasonably achievable. Dictated by Jp Mejia MD @ Mar 24 2019 6:58PM Signed by Dr. Jp Mejia @ Mar 24 2019 7:15PM
--- NOTE | 2019-03-24 19:35 | CR ---
Indication: Pain Technique: Chest 1 view Comparison: None Findings/Impression: Normal cardiomediastinal silhouette. Emphysema with hyper expanded lungs. Linear scarring or atelectasis in the right upper lobe. No focal infiltrate, effusion, or pneumothorax. No acute osseous abnormality. Dictated by Shahana Norris MD @ Mar 24 2019 7:18PM Signed by Dr. Shahana Norris @ Mar 24 2019 7:32PM
[2019-03-24] MEDS: Polyethylene Glycol 3350 Powder 17 GM Packet PO SCH (20:15)
[2019-03-24] MEDS: Fluticasone/Salmeterol 250-50 MCG Inhalation Powder 14/Diskus INH SCH (20:16)
[2019-03-24] MEDS ORDERED: traMADol 50 MG Tab PO SCH (21:00)
[2019-03-24] MEDS ORDERED: traZODone 50 MG Tab PO SCH (21:00)
[2019-03-25 07:11] LABS: CHLORIDE,CL 105 mmol/L (98-107); SODIUM,NA 140 mmol/L (136-145)
--- NOTE | 2019-03-25 07:56 | PCM.DCSUM1 ---
Discharge Summary - Hospital Course Free Text/Narrative:: The patient was admitted secondary to anemia, weakness, myelodysplastic disorder and was found to have large liver mass with pancreatic mass. Diagnosis: Stroke: No - Discharge Data Discharge Date: 03/25/19 Discharge Disposition: Home, Self-Care 01 Condition: Poor - Discharge Diagnosis/Problem(s) (1) Anemia SNOMED Code(s): 774439963 ICD Code: D64.9 - ANEMIA, UNSPECIFIED Status: Acute Current Visit: Yes Qualifiers: Anemia type: bone marrow failure Bone marrow failure anemia type: other bone marrow failure Qualified Code(s): D61.89 - Other specified aplastic anemias and other bone marrow failure syndromes (2) Protein-calorie malnutrition, moderate SNOMED Code(s): 452103789 ICD Code: E44.0 - MODERATE PROTEIN-CALORIE MALNUTRITION Status: Chronic Priority: High Current Visit: Yes (3) Dehydration SNOMED Code(s): 13753855 ICD Code: E86.0 - DEHYDRATION Status: Acute Priority: High Current Visit: Yes (4) Generalized weakness SNOMED Code(s): 88690167 ICD Code: R53.1 - WEAKNESS Status: Chronic Priority: Medium Current Visit: Yes (5) Myelodysplastic syndrome SNOMED Code(s): 320498768 ICD Code: D46.9 - MYELODYSPLASTIC SYNDROME, UNSPECIFIED Status: Chronic Priority: High Current Visit: Yes (6) Pancreatic mass SNOMED Code(s): 205227980 ICD Code: K86.89 - OTHER SPECIFIED DISEASES OF PANCREAS Status: Chronic Priority: High Current Visit: Yes - Patient Summary/Data Hospital Course: The patient is a medically complex 79-year-old lady who had been admitted through the emergency room secondary to weakness, dehydration and was found to be anemic with a hemoglobin of 7.7 g/dL. The patient has a history of myelodysplastic syndrome and has had multiple transfusions of packed red blood cells. The patient follows with an oncologist both in [place] and [facility]. The patient also had abdominal pain and as a result of this she had a CT scan that was obtained yesterday that showed to have moderate intrahepatic biliary ductal dilatation and a large mass in the superior right lobe of her liver that was measuring 12 x 10 x 11 cm and was thought to originate from the head of the pancreas highly suspicious for pancreatic cancer. The patient initially had refused blood transfusion and her hemoglobin dropped by day of discharge to 6.7 g/dL. The patient had wanted to be transferred to [facility] and she had planned on discussing the case with her primary oncologist. The patient had agreed to transfusion of one unit of packed red blood cells and she tolerated this without difficulty. I had a discussion with the patient regarding findings of the CT scan. The patient has expressed a desire to be discharged so she can follow-up with her primary oncologist as well as [facility]. The patient is recommended to continue with her diet as tolerated. She is also have activity as tolerated. She otherwise has been hemodynamically stable and she will be discharged from acute hospitalization after transfusion of single unit of packed red blood cells. The patient has been provided with copies of the CT scan done in order to provide information for her primary care physician. - Patient Instructions Diet: Heart Healthy Diet Activity: As Tolerated - Discharge Plan *PRESCRIPTION DRUG MONITORING PROGRAM REVIEWED*: No *COPY OF PRESCRIPTION DRUG MONITORING REPORT IN PATIENT STACY: No Home Medications: Home Meds Albuterol [Ventolin HFA] 2 puff IN Q6H PRN 03/24/19 [History] Azithromycin [Zithromax] 250 mg PO DAILY 03/24/19 [History] DULoxetine [Cymbalta] 30 mg PO DAILY 03/24/19 [History] Ethambutol 800 mg PO DAILY 03/24/19 [History] Fluticasone/Salmeterol [Advair 250-50 Diskus] 1 puff IH BID 03/24/19 [History] Rifabutin 300 mg PO DAILY 03/24/19 [History] Rivaroxaban [Xarelto] 20 mg PO DAILY 03/24/19 [History] Triamcinolone Acetonide [Triamcinolone Acetonide 0.1% Crm] 1 applic TOP BID [History] Triamterene/Hydrochlorothiazid [Triamterene-HCTZ 37.5-25 MG] 1 each PO DAILY [History] hydrOXYzine pamoate [Hydroxyzine Pamoate] 25 mg PO BEDTIME PRN 03/24/19 [History ] traMADol [Ultram] 50 mg PO BEDTIME 03/24/19 [History] traZODone HCl [Trazodone HCl] 25 mg PO BEDTIME 03/24/19 [History] Oxygen Therapy Mode: Room Air Patient Handouts: Anemia, Weakness, Dehydration, Elderly, [id number] - Discharge Summary/Plan Comment DC Time >30 min.: Yes - General Info Date of Service: 03/25/19 Admission Dx/Problem (Free Text: Admission Diagnosis/Problem Admission Diagnosis/Problem Weakness, 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, pancreatic mass Functional Status: Reports: Pain Controlled - Review of Systems General: Reports: Weakness, Fatigue HEENT: Reports: No Symptoms Pulmonary: Reports: No Symptoms Cardiovascular: Reports: No Symptoms Gastrointestinal: Reports: No Symptoms Genitourinary: Reports: No Symptoms Musculoskeletal: Reports: No Symptoms Skin: Reports: No Symptoms Neurological: Reports: No Symptoms Psychiatric: Reports: No Symptoms - Patient Data Vitals - Most Recent: Last Vital Signs Temp 36.2 C 03/25/19 04:00 Pulse 106 H 03/25/19 04:00 Resp 16 03/25/19 04:00 BP 92/51 L 03/25/19 04:00 Pulse Ox 97 03/25/19 04:00 Weight - Most Recent: 47.627 kg I&O - Last 24 hours: Intake & Output 03/24/19 03/25/19 03/25/19 22:59 06:59 14:59 Intake Total 1000 25 850 Output Total 700 Balance 1000 -675 850 Lab Results - Last 24 hrs: Laboratory Results - last 24 hr 03/24/19 03/24/19 03/24/19 Range/Units 16:38 16:38 16:38 WBC 3.23 L (4.0-11.0) K/uL RBC 2.34 L (4.30-5.90) M/uL Hgb 7.7 L (12.0-16.0) g/dL Hct 23.1 L (36.0-46.0) % MCV 98.7 H (80.0-98.0) fL MCH 32.9 H (27.0-32.0) pg MCHC 33.3 (31.0-37.0) g/dL RDW Std Deviation 74.3 H (28.0-62.0) fl RDW Coeff of Aliyah 22 H (11.0-15.0) % Plt Count 253 (150-400) K/uL MPV 12.00 (7.40-12.00) fL Neut % (Auto) 72.5 (48.0-80.0) % Lymph % (Auto) 7.7 L (16.0-40.0) % [place] % (Auto) 1.9 (0.0-15.0) % Eos % (Auto) 17.0 H (0.0-7.0) % Baso % (Auto) 0.9 (0.0-1.5) % Neut # (Auto) 2.3 (1.4-5.7) K/uL Lymph # (Auto) 0.3 L (0.6-2.4) K/uL [place] # (Auto) 0.1 (0.0-0.8) K/uL Eos # (Auto) 0.6 (0.0-0.7) K/uL Baso # (Auto) 0.0 (0.0-0.1) K/uL Nucleated RBC % 0.0 /100WBC Nucleated RBCs # 0 K/uL INR 1.18 Sodium 137 (136-145) mmol/L Potassium 3.3 L (3.5-5.1) mmol/L Chloride 101 (98-107) mmol/L Carbon Dioxide 27.1 (21.0-32.0) mmol/L BUN 19 H (7.0-18.0) mg/dL Creatinine 0.9 (0.6-1.0) mg/dL Est Cr Clr Drug Dosing 36.86 mL/min Estimated GFR (MDRD) > 60.0 ml/min Glucose 110 H (74-106) mg/dL Calcium 9.1 (8.5-10.1) mg/dL Total Bilirubin 1.2 H (0.2-1.0) mg/dL AST 27 (15-37) IU/L ALT 17 (14-63) IU/L Alkaline Phosphatase 84 (46-116) U/L Total Protein 6.0 L (6.4-8.2) g/dL Albumin 3.2 L (3.4-5.0) g/dL Globulin 2.8 (2.6-4.0) g/dL Albumin/Globulin Ratio 1.1 (0.9-1.6) Lipase 66 L (73-393) U/L Urine Color Urine Appearance Urine pH (5.0-8.0) Ur Specific [place] (1.001-1.035) Urine Protein (NEGATIVE) mg/dL Urine Glucose (UA) (NEGATIVE) mg/dL Urine Ketones (NEGATIVE) mg/dL Urine Occult Blood (NEGATIVE) Urine Nitrite (NEGATIVE) Urine Bilirubin (NEGATIVE) Urine Ictotest Urine Urobilinogen (<2.0) EU/dL Ur Leukocyte Esterase (NEGATIVE) Urine RBC (0-2/HPF) Urine WBC (0-5/HPF) Ur Epithelial Cells (NONE-FEW) Urine Bacteria (NEGATIVE) Urine Mucus (NONE-MOD) Blood Type Antibody Screen Crossmatch 03/24/19 03/25/19 03/25/19 Range/Units 16:38 05:15 06:25 WBC (4.0-11.0) K/uL RBC (4.30-5.90) M/uL Hgb (12.0-16.0) g/dL Hct (36.0-46.0) % MCV (80.0-98.0) fL MCH (27.0-32.0) pg MCHC (31.0-37.0) g/dL RDW Std Deviation (28.0-62.0) fl RDW Coeff of Aliyah (11.0-15.0) % Plt Count (150-400) K/uL MPV (7.40-12.00) fL Neut % (Auto) (48.0-80.0) % Lymph % (Auto) (16.0-40.0) % [place] % (Auto) (0.0-15.0) % Eos % (Auto) (0.0-7.0) % Baso % (Auto) (0.0-1.5) % Neut # (Auto) (1.4-5.7) K/uL Lymph # (Auto) (0.6-2.4) K/uL [place] # (Auto) (0.0-0.8) K/uL Eos # (Auto) (0.0-0.7) K/uL Baso # (Auto) (0.0-0.1) K/uL Nucleated RBC % /100WBC Nucleated RBCs # K/uL INR Sodium 140 (136-145) mmol/L Potassium 3.4 L (3.5-5.1) mmol/L Chloride 105 (98-107) mmol/L Carbon Dioxide 26.9 (21.0-32.0) mmol/L BUN 14 (7.0-18.0) mg/dL Creatinine 0.8 (0.6-1.0) mg/dL Est Cr Clr Drug Dosing 41.47 mL/min Estimated GFR (MDRD) > 60.0 ml/min Glucose 89 (74-106) mg/dL Calcium 8.4 L (8.5-10.1) mg/dL Total Bilirubin 0.7 (0.2-1.0) mg/dL AST 17 (15-37) IU/L ALT 17 (14-63) IU/L Alkaline Phosphatase 70 (46-116) U/L Total Protein 5.1 L (6.4-8.2) g/dL Albumin 2.6 L (3.4-5.0) g/dL Globulin 2.5 L (2.6-4.0) g/dL Albumin/Globulin Ratio 1.0 (0.9-1.6) Lipase (73-393) U/L Urine Color BROWN Urine Appearance CLEAR Urine pH 5.5 (5.0-8.0) Ur Specific [place] 1.020 (1.001-1.035) Urine Protein TRACE H (NEGATIVE) mg/dL Urine Glucose (UA) NEGATIVE (NEGATIVE) mg/dL Urine Ketones NEGATIVE (NEGATIVE) mg/dL Urine Occult Blood NEGATIVE (NEGATIVE) Urine Nitrite POSITIVE H (NEGATIVE) Urine Bilirubin SMALL H (NEGATIVE) Urine Ictotest NEGATIVE Urine Urobilinogen 2.0 H (<2.0) EU/dL Ur Leukocyte Esterase NEGATIVE (NEGATIVE) Urine RBC NONE SEEN (0-2/HPF) Urine WBC 0-1 (0-5/HPF) Ur Epithelial Cells RARE (NONE-FEW) Urine Bacteria FEW (NEGATIVE) Urine Mucus LIGHT (NONE-MOD) Blood Type O POSITIVE Antibody Screen NEGATIVE Crossmatch See Detail 03/25/19 Range/Units 06:25 WBC 3.31 L (4.0-11.0) K/uL RBC 2.05 L (4.30-5.90) M/uL Hgb 6.7 L (12.0-16.0) g/dL Hct 20.4 L (36.0-46.0) % MCV 99.5 H (80.0-98.0) fL MCH 32.7 H (27.0-32.0) pg MCHC 32.8 (31.0-37.0) g/dL RDW Std Deviation 73.7 H (28.0-62.0) fl RDW Coeff of Aliyah 21 H (11.0-15.0) % Plt Count 224 (150-400) K/uL MPV 12.00 (7.40-12.00) fL Neut % (Auto) 69.5 (48.0-80.0) % Lymph % (Auto) 13.3 L (16.0-40.0) % [place] % (Auto) 4.8 (0.0-15.0) % Eos % (Auto) 11.5 H (0.0-7.0) % Baso % (Auto) 0.9 (0.0-1.5) % Neut # (Auto) 2.3 (1.4-5.7) K/uL Lymph # (Auto) 0.4 L (0.6-2.4) K/uL [place] # (Auto) 0.2 (0.0-0.8) K/uL Eos # (Auto) 0.4 (0.0-0.7) K/uL Baso # (Auto) 0.0 (0.0-0.1) K/uL Nucleated RBC % 0.0 /100WBC Nucleated RBCs # 0 K/uL INR Sodium (136-145) mmol/L Potassium (3.5-5.1) mmol/L Chloride (98-107) mmol/L Carbon Dioxide (21.0-32.0) mmol/L BUN (7.0-18.0) mg/dL Creatinine (0.6-1.0) mg/dL Est Cr Clr Drug Dosing mL/min Estimated GFR (MDRD) ml/min Glucose (74-106) mg/dL Calcium (8.5-10.1) mg/dL Total Bilirubin (0.2-1.0) mg/dL AST (15-37) IU/L ALT (14-63) IU/L Alkaline Phosphatase (46-116) U/L Total Protein (6.4-8.2) g/dL Albumin (3.4-5.0) g/dL Globulin (2.6-4.0) g/dL Albumin/Globulin Ratio (0.9-1.6) Lipase (73-393) U/L Urine Color Urine Appearance Urine pH (5.0-8.0) Ur Specific [place] (1.001-1.035) Urine Protein (NEGATIVE) mg/dL Urine Glucose (UA) (NEGATIVE) mg/dL Urine Ketones (NEGATIVE) mg/dL Urine Occult Blood (NEGATIVE) Urine Nitrite (NEGATIVE) Urine Bilirubin (NEGATIVE) Urine Ictotest Urine Urobilinogen (<2.0) EU/dL Ur Leukocyte Esterase (NEGATIVE) Urine RBC (0-2/HPF) Urine WBC (0-5/HPF) Ur Epithelial Cells (NONE-FEW) Urine Bacteria (NEGATIVE) Urine Mucus (NONE-MOD) Blood Type Antibody Screen Crossmatch Med Orders - Current: Current Medications Acetaminophen (Tylenol) 650 mg PO Q4H PRN PRN Reason: Pain (Mild 1-3)/fever Albuterol (Ventolin Hfa) 0 gm INH Q6H PRN PRN Reason: Shortness of Breath Duloxetine HCl (Cymbalta) 30 mg PO DAILY [facility] Hydroxyzine Pamoate (Vistaril) 25 mg PO BEDTIME PRN PRN Reason: Itching Magnesium Citrate (Citrate Of Magnesia) 296 ml PO ONETIME PRN PRN Reason: Constipation Non-Formulary Medication (Rivaroxaban [Xarelto]) 20 mg PO DAILY [facility] Non-Formulary Medication (Triamterene/Hydrochlorothiazid) 1 each PO DAILY [facility] Ondansetron HCl (Zofran Odt) 4 mg PO Q4H PRN PRN Reason: nausea, able to take PO Ondansetron HCl (Zofran) 4 mg IVPUSH Q4H PRN PRN Reason: Nausea Polyethylene Glycol (Miralax) 17 gm PO DAILY [facility] Last Admin: 03/24/19 20:15 Dose: Not Given Fluticasone/Salmeterol (Advair Diskus 250-50) 1 puff INH BID [facility] Last Admin: 03/24/19 20:16 Dose: 1 puff Sodium Chloride (Saline Flush) 10 ml FLUSH ASDIRECTED PRN PRN Reason: Keep Vein Open Last Admin: 03/24/19 16:35 Dose: 10 ml Sodium Chloride (Saline Flush) 2.5 ml FLUSH ASDIRECTED PRN PRN Reason: Keep Vein Open Last Admin: 03/24/19 16:35 Dose: 2.5 ml Tramadol HCl (Ultram) 50 mg PO BEDTIME [facility] Last Admin: 03/24/19 20:15 Dose: 50 mg Trazodone HCl (Trazodone) 25 mg PO BEDTIME [facility] Last Admin: 03/24/19 20:16 Dose: 25 mg Discontinued Medications Bisacodyl (Dulcolax) 20 mg PO ONETIME ONE Stop: 03/24/19 17:56 Last Admin: 03/24/19 20:15 Dose: Not Given Sodium Chloride (Normal Saline) 1,000 mls @ 999 mls/hr IV .BOLUS ONE Stop: 03/24/19 17:16 Last Admin: 03/24/19 16:34 Dose: 999 mls/hr Sodium Chloride (Normal Saline) 1,000 mls @ 75 mls/hr IV STAT ONE Stop: 03/25/19 07:20 Last Admin: 03/24/19 23:15 Dose: Not Given Sodium Chloride (Normal Saline) 1,000 mls @ 75 mls/hr IV CONTINUOUS ONE Stop: 03/25/19 07:20 Last Admin: 03/24/19 20:02 Dose: 75 mls/hr Ondansetron HCl (Zofran) 4 mg IVPUSH ONETIME ONE Stop: 03/24/19 16:18 Last Admin: 03/24/19 16:35 Dose: 4 mg Potassium Chloride (Klor-Con M20) 40 meq PO ONETIME ONE Stop: 03/24/19 18:01 Last Admin: 03/24/19 18:53 Dose: 40 meq - Exam Quality Assessment: Denies: Supplemental Oxygen General: Reports: Alert, Oriented, Cooperative, Other (Cachectic) HEENT: Reports: Pupils Equal, Pupils Reactive Neck: Reports: Supple, Trachea Midline Lungs: Reports: Clear to Auscultation, Normal Respiratory Effort Cardiovascular: Reports: Regular Rate, Regular Rhythm GI/Abdominal Exam: Normal Bowel Sounds, Mass Back Exam: Reports: Normal Inspection Extremities: Normal Inspection, No Pedal Edema Skin: Reports: Warm, Dry, Intact Neurological: Reports: No New Focal Deficit Psy/Mental Status: Reports: Alert, Normal Affect, Normal Mood
[2019-03-25] MEDS ORDERED: TRIAMTERENE PO SCH (09:00)
[2019-03-25] MEDS ORDERED: HYDROCHLOROTHIAZID PO SCH (09:00)
[2019-03-25] MEDS ORDERED: DULoxetine 30 MG Cap PO SCH (09:00)
[2019-03-25] MEDS ORDERED: Non-Formulary Medication 1 Each (Rivaroxaban [Xarelto] 20 MG) PO SCH (09:00)
[2019-03-25] MEDS: Polyethylene Glycol 3350 Powder 17 GM Packet PO SCH (09:16)
[2019-03-25] MEDS: Fluticasone/Salmeterol 250-50 MCG Inhalation Powder 14/Diskus INH SCH (10:20)
== END 2019-03-25 13:18 | disposition home or self-care (01) ==
LOC: MW.ED 15:45 → MW.MS 18:22
PROVIDERS: ADMIT Internal Medicine; ATTEND Internal Medicine
DX: D61.89 Other specified aplastic anemias and other bone marrow failure syndromes (principal); R53.1 Weakness; E86.0 Dehydration; K59.00 Constipation, unspecified; C94.6 Myelodysplastic disease, not elsewhere classified; R16.0 Hepatomegaly, not elsewhere classified; K86.89 Other specified diseases of pancreas; E44.0 Moderate protein-calorie malnutrition; Z79.899 Other long term (current) drug therapy; Z79.2 Long term (current) use of antibiotics; Z79.51 Long term (current) use of inhaled steroids; Z79.01 Long term (current) use of anticoagulants; Z79.891 Long term (current) use of opiate analgesic; Z88.8 Allergy status to other drugs, medicaments and biological substances
CPT/HCPCS: 36415; 36430; 71045; 74176; 80053; 81001; 83690; 85014; 85018; 85025; 85610; 86850; 86900; 86901; 86920; 86921; 86922; 86945; 87086; 93005; 96361; 96374; 99285; A9270; G0378; J2405; J7040; 99283